=== PATIENT | female | born 1995 | race Two or more races ===

== ENCOUNTER 2021-08-29 22:43 | Emergency (ER) | payer OTHER ==
[~2021-08-29] VITALS: Ht 165.1 cm; Wt 84.4 kg
[2021-08-30] MEDS ORDERED: VISTARIL50 MG PO (06:40)
== END 2021-08-30 06:50 | disposition home or self-care (01) ==
LOC: ER 22:43
DX: R00.2 Palpitations (principal); F41.9 Anxiety disorder, unspecified; I51.7 Cardiomegaly; R00.0 Tachycardia, unspecified; R07.89 Other chest pain